=== PATIENT | female | born 1980 | race Caucasian/White ===

== ENCOUNTER 2017-09-14 01:43 | Emergency (ER) | payer BC ==
[2017-09-14] MEDS ORDERED: HYOSCYAMINE SULFATE ODT 0.125 MG TAB.SUBL SL ONE (01:52)
--- NOTE | 2017-09-14 01:56 | Emergency Department Record ---
History of Present Illness - General Chief Complaint: Abdominal Pain Stated Complaint: ABDOMINAL PAIN Time Seen by Provider: 09/14/17 01:52 Source: Patient Mode of Arrival: Ambulatory Limitations: No limitations - History of Present Illness Initial Comments: 36 yo female presents to ED for evaluation of abdominal cramping symptoms associated with nausea/vomiting 3 days ago, denies fevers, chills, or urinary symptoms. Patient denies change in stools. Patient denies previous abdominal surgeries and denies health problems other than anxiety. MD Complaint: Abdominal pain Location: LUQ, RUQ Radiation: None Severity: Moderate Quality: Cramping Consistency: Constant Improves With: Nothing Worsens With: Nothing Associated Symptoms: Denies other symptoms - Related Data Home Medications Medication Instructions Recorded Confirmed Last Taken Escitalopram Oxalate [Lexapro] 10 mg PO DAILY 09/14/17 09/14/17 09/13/17 Previous Rx's Medication Instructions Recorded Hyoscyamine Sulfate [Levsin-Sl] 0.25 mg SL Q8H PRN #15 tab.subl 09/14/17 Allergies Allergy/AdvReac Type Severity Reaction Status Date / Time No Known Drug Allergies Allergy Verified 09/14/17 01:47 Review of Systems Constitutional: Denies: Chills, Fever, Malaise, Night sweats Eyes: Denies: Eye discharge, Eye pain ENT: Denies: Congestion, Ear pain, Epistaxis Respiratory: Denies: Cough, Dyspnea Cardiovascular: Denies: Chest pain, Dyspnea on exertion Endocrine: Denies: Fatigue, Heat or cold intolerance Gastrointestinal: Reports: Abdominal pain, Nausea, Vomiting Genitourinary: Denies: Incontinence, Retention Musculoskeletal: Denies: Arthralgia, Back pain, Gout, Joint swelling Skin: Denies: Bruising, Change in color Neurological: Denies: Abnormal gait, Confusion, Headache, Seizure Psychiatric: Reports: Anxiety Hematological/Lymphatic: Denies: Anemia, Blood Clots Physical Exam - General General Appearance: Alert, Oriented x3, Cooperative, Mild distress, Anxious Limitations: No limitations - Head Head exam: Atraumatic, Normocephalic, Normal inspection Head exam detail: negative: Abrasion, Contusion, Palomino's sign, General tenderness, Hematoma, Laceration - Eye Eye exam: Normal appearance. negative: Conjunctival injection, Periorbital swelling, Periorbital tenderness, Scleral icterus - ENT Ear exam: negative: Auricular hematoma, Auricular trauma Nasal Exam: negative: Active bleeding, Discharge, Dried blood, Foreign body Mouth exam: negative: Drooling, Laceration, Muffled voice, Tongue elevation - Neck Neck exam: Normal inspection. negative: Meningismus, Tenderness - Respiratory Respiratory exam: Normal lung sounds bilaterally. negative: Rales, Respiratory distress, Rhonchi, Stridor - Cardiovascular Cardiovascular Exam: Regular rate, Normal rhythm, Normal heart sounds - GI/Abdominal GI/Abdominal exam: Soft, Tenderness (Very mild TTP RUQ, no rebound, guarding, or peritoneal signs on examination). negative: Rebound, Rigid - Rectal Rectal exam: Deferred - exam: Deferred - Extremities Extremities exam: Normal inspection. negative: Calf tenderness, Pedal edema, Tenderness - Back Back exam: Denies: CVA tenderness (R), CVA tenderness (L) - Neurological Neurological exam: Alert, Normal gait, Oriented X3 - Psychiatric Psychiatric exam: Anxious, Normal mood - Skin Skin exam: Normal color. negative: Abrasion Type of lesion: negative: abrasion Course Vital Signs 09/14/17 01:50 Temperature 97.3 F L Pulse Rate [ 104 H Pulse Ox Probe] Respiratory 18 Rate Blood Pressure 147/97 [Left Arm] Pulse Ox 99 - Reevaluation(s) Reevaluation #1: 09/14/17 02:35 EKG: NSR [address]-T wave changes Nonspecific ST-T wave changes Reevaluation #2: 09/14/17 02:38 Labs reviewed and are grossly unremarkable for an acute process except for potassium level of 3.0, 40 meq ordered orally. 09/14/17 03:10 UA reviewed and appears negative for infection/. Patient reassessed and reports that her symptoms are greatly improved, patient's repeat abdominal examination appears benign at this time. Patient appears stable for stable for discharge at this time. Medical Decision Making - Lab Data Result diagrams: 09/14/17 02:00 09/14/17 02:00 Disposition Disposition: Discharge Clinical Impression: Abdominal cramping Disposition: Home, Self-Care Condition: (2) Stable Instructions: Abdominal Pain (ED) Additional Instructions: Return to ED if your symptoms worsen or if you have any concerns. Levsin as directed. Follow-up with your family doctor in 3-5 days as directed. Prescriptions: Hyoscyamine Sulfate [Levsin-Sl] 0.25 mg SL Q8H PRN #15 tab.subl PRN Reason: Abdominal Pain Forms: Patient Portal Access Time of Disposition: 03:17 Quality - Quality Measures Quality Measures: N/A - Blood Pressure Screening Does Patient Have Any of the Following: No Blood Pressure Classification: Hypertensive Reading Systolic Measurement: 147 Diastolic Measurement: 97 Screening for High Blood Pressure: < First Hypertensive BP, F/U Documented > [ [id number]] First Hypertensive Follow-up Interventions: Referral to alternative/primary care provider.
[2017-09-14] MEDS ORDERED: 0.9 % SODIUM CHLORIDE 1000ML 1,000 ML IV SCH (02:00)
[2017-09-14 02:17] LABS: HEMATOCRIT 39.7 % (35.0-47.0); HEMOGLOBIN 13.5 gm/dl (11.6-16.0); MEAN CELL VOLUME 83.4 fl (81-97); MEAN CORPUSCULAR HEMOGLOBIN 28.4 pg (27-33); MEAN PLATELET VOLUME 10.5 fl (7.4-10.4); PLATELET COUNT 314 K/uL (130-400); RED BLOOD COUNT 4.76 M/uL (3.80-5.40); RED CELL DISTRIBUTION WIDTH 12.6 % (11.5-14.5); WHITE BLOOD COUNT W/O DIFF 7.4 K/uL (4.2-12.2)
[2017-09-14 02:35] LABS: ALBUMIN 4.2 g/dL (4.0-5.0); ALKALINE PHOSPHATASE 60 U/L (35-104); ALT/SGPT 37 U/L (<33); AST/SGOT 19 U/L (10.0-35.0); BLOOD UREA NITROGEN 11 mg/dL (6-20); CREATININE 0.7 mg/dL (0.5-0.9); EST GLOMERULAR FILTRATION RATE > 60 mL/min; GLUCOSE,RANDOM 117 mg/dL (74-109); LIPASE 53 U/L (13-60)
[2017-09-14 02:36] LABS: ALB/GLOB RATIO 1.1 (1.1-1.8); TOTAL PROTEIN 7.9 g/dL (6.6-8.7)
[2017-09-14] MEDS ORDERED: POTASSIUM CHLORIDE 20 MEQ TABLET PO ONE (02:37)
[2017-09-14 03:05] LABS: URINE APPEARANCE CLEAR; URINE BILIRUBIN NEGATIVE (NEGATIVE); URINE BLOOD NEGATIVE (NEGATIVE); URINE COLOR YELLOW; URINE GLUCOSE (UA) NEGATIVE (NEGATIVE); URINE KETONE NEGATIVE (NEGATIVE); URINE LEUKOCYTE ESTERASE NEGATIVE (NEGATIVE); URINE NITRITE NEGATIVE (NEGATIVE); URINE PROTEIN NEGATIVE (NEGATIVE); URINE UROBILINOGEN 0.2 E.U./dL (0.20 - 1.00)
[2017-09-14 03:09] LABS: HCG,QUALITATIVE URINE NEGATIVE (NEGATIVE)
== END 2017-09-14 03:31 | disposition home or self-care (01) ==
LOC: ER 01:43
DX: R10.11 Right upper quadrant pain (principal); R11.2 Nausea with vomiting, unspecified
CPT/HCPCS: 80053; 81003; 81025; 83690; 85027; 93005; 93010; 99284; J7030